=== PATIENT | male | born 1960 | race Caucasian/White ===

== ENCOUNTER 2018-07-09 11:04 | Emergency (ER) | payer OTHER ==
--- NOTE | 2018-07-09 12:15 | RAD REPORT ---
EXAM DESCRIPTION: RAD - Nasal Bones - 07/09/2018 12:07 pm CLINICAL HISTORY: Pain;Trauma COMPARISON: No comparisons FINDINGS: Lucency is seen in the nasal bone with small bony linear fragment present suspicious for n tyrone bone fracture. Moderate soft tissue swelling is present.
--- NOTE | 2018-07-09 12:18 | ER ---
Nurse's Notes [facility] Name: Junaid Keller Age: 58 yrs Sex: Male : 1960 Arrival Date: 07/09/2018 Time: 11:06 Bed 20 Private MD: Diagnosis: Fracture of nasal bones;Epistaxis Presentation: 07/09 11:00 Presenting complaint: Patient states: was pulling up a 2X4 with a steel bar, 2X4 hit pt iw in face, denies LOC, sustained bloody nose. Transition of care: patient was not received from another setting of care. Onset of symptoms was July 09, 2018. Risk Assessment: Do you want to hurt yourself or someone else? Patient reports no desire to harm self or others. Initial Sepsis Screen: Does the patient meet any 2 criteria? No. Patient's initial sepsis screen is negative. Does the patient have a suspected source of infection? No. Patient's initial sepsis screen is negative. Care prior to arrival: None. 11:00 Method Of Arrival: Ambulatory iw 11:00 Acuity: ALESIA 4 iw Triage Assessment: 11:12 General: Appears in no apparent distress. uncomfortable, Behavior is calm, cooperative, hj appropriate for age. Pain: Denies pain. EENT: Nares with bleeding noted bilaterally. Neuro: Level of Consciousness is awake, alert, obeys commands, Oriented to person, place, time, situation, Appropriate for age. Cardiovascular: Capillary refill < 3 seconds Patient's skin is warm and dry. Respiratory: Airway is patent Respiratory effort is even, unlabored, Respiratory pattern is regular, symmetrical. GI: No signs and/or symptoms were reported involving the gastrointestinal system. : No signs and/or symptoms were reported regarding the genitourinary system. Derm: No signs and/or symptoms reported regarding the dermatologic system. Musculoskeletal: No deficits noted. Historical: - Allergies: 11:32 NKA; iw - Home Meds: 11:32 None [Active]; iw - PMHx: 11:32 None; iw - PSHx: 11:32 back; iw - Immunization history:: Adult Immunizations up to date. - Social history:: Smoking status: Patient uses tobacco products, Patient/guardian denies using. - Ebola Screening: : Patient negative for fever greater than or equal to 101.5 degrees Fahrenheit, and additional compatible Ebola Virus Disease symptoms Patient denies exposure to infectious person Patient denies travel to an Ebola-affected area in the 21 days before illness onset. Screenin:12 Abuse screen: Denies threats or abuse. Denies injuries from another. Nutritional hj screening: No deficits noted. Tuberculosis screening: No symptoms or risk factors identified. Fall Risk None identified. Vital Signs: 11:10 BP 135 / 81; Pulse 72; Resp 16; Temp 98.2; Pulse Ox 100% on R/A; Weight 102.06 kg; iw Height 6 ft. 5 in. (195.58 cm); Pain 0/10; 12:40 BP 138 / 70; Pulse 72; Resp 18; Pulse Ox 100% on R/A; hj 11:10 Body Mass Index 26.68 (102.06 kg, 195.58 cm) ED Course: 11:06 Patient arrived in ED. hj 11:08 Og Andrade PA is PHCP. jr8 11:08 Anand Mejia MD is Attending Physician. jr8 11:12 Arm band placed on right wrist. hj 11:12 Patient has correct armband on for positive identification. Bed in low position. Call hj light in reach. Side rails up X 1. Adult w/ patient. 11:31 Grudeep Issa, RN is Primary Nurse. hj 11:31 Triage completed. iw 12:07 XRAY Nasal Bones In Process Unspecified. EDMS 12:17 Juany Merino MD is Referral Physician. jr8 Administered Medications: No medications were administered Outcome: 12:18 Discharge ordered by . jr8 12:55 Patient left the ED. hj Signatures: Dispatcher [employer] EDMS Rosangela Dalal, JC GREENE Og Andrade PA PA jrGurdeep Espinosa RN RN
--- NOTE | 2018-07-09 12:18 | EDPHYS ---
Physician Documentation [facility] Name: Junaid Keller Age: 58 yrs Sex: Male : 1960 Arrival Date: 07/09/2018 Time: 11:06 Bed 20 Private MD: ED Physician Anand Mejia HPI: 07/09 11:13 This 58 yrs old Male presents to ER via Unassigned with complaints of Nose jr8 Bleed/Trauma. 11:13 The patient presents with nasal trauma, from direct blow, appears swelling with jr8 epistaxis. bleeding is small amount. Onset: The symptoms/episode began/occurred acutely, today. Modifying factors: The symptoms are alleviated by pressure, the symptoms are aggravated by nothing. Associated signs and symptoms: The patient has no apparent associated signs or symptoms, Loss of consciousness: the patient experienced no loss of consciousness. Severity of symptoms: At their worst the symptoms were moderate in the emergency department the symptoms have improved mildly. It is unknown whether or not the patient has had similar symptoms in the past. The patient has not recently seen a physician. Patient was working and had 2x4 accidently hit him in the nose. Has had fractures to nose in past causing deformity. Swelling present with mild epistaxis . Historical: - Allergies: 11:32 NKA; iw - Home Meds: 11:32 None [Active]; iw - PMHx: 11:32 None; iw - PSHx: 11:32 back; iw - Immunization history:: Adult Immunizations up to date. - Social history:: Smoking status: Patient uses tobacco products, Patient/guardian denies using. - Ebola Screening: : Patient negative for fever greater than or equal to 101.5 degrees Fahrenheit, and additional compatible Ebola Virus Disease symptoms Patient denies exposure to infectious person Patient denies travel to an Ebola-affected area in the 21 days before illness onset. ROS: 11:13 Eyes: Negative for injury, pain, redness, and discharge, Neck: Negative for injury, jr8 pain, and swelling, Cardiovascular: Negative for chest pain, palpitations, and edema, Respiratory: Negative for shortness of breath, cough, wheezing, and pleuritic chest pain, Abdomen/GI: Negative for abdominal pain, nausea, vomiting, diarrhea, and constipation, Back: Negative for injury and pain, MS/Extremity: Negative for injury and deformity, Skin: Negative for injury, rash, and discoloration, Neuro: Negative for headache, weakness, numbness, tingling, and seizure. 11:13 ENT: Positive for injury or acute deformity, nose bleed. Exam: 11:13 Eyes: Pupils equal round and reactive to light, extra-ocular motions intact. Lids and jr8 lashes normal. Conjunctiva and sclera are non-icteric and not injected. Cornea within normal limits. Periorbital areas with no swelling, redness, or edema. Neck: Trachea midline, no thyromegaly or masses palpated, and no cervical lymphadenopathy. Supple, full range of motion without nuchal rigidity, or vertebral point tenderness. No Meningismus. Cardiovascular: Regular rate and rhythm with a normal S1 and S2. No gallops, murmurs, or rubs. Normal PMI, no JVD. No pulse deficits. Respiratory: Lungs have equal breath sounds bilaterally, clear to auscultation and percussion. No rales, rhonchi or wheezes noted. No increased work of breathing, no retractions or nasal flaring. Abdomen/GI: Soft, non-tender, with normal bowel sounds. No distension or tympany. No guarding or rebound. No evidence of tenderness throughout. Back: No spinal tenderness. No costovertebral tenderness. Full range of motion. Skin: Warm, dry with normal turgor. Normal color with no rashes, no lesions, and no evidence of cellulitis. MS/ Extremity: Pulses equal, no cyanosis. Neurovascular intact. Full, normal range of motion. Neuro: Awake and alert, GCS 15, oriented to person, place, time, and situation. Cranial nerves II-XII grossly intact. Motor strength 5/5 in all extremities. Sensory grossly intact. Cerebellar exam normal. Normal gait. 11:13 ENT: External ear(s): are unremarkable, Ear canal(s): are normal, clear, TM's: are normal, no evidence of bulging, no dullness, no erythema, no fluid levels, no hemotympanum, no rupture, normal bony landmarks, normal mobility, Nose: External nose: deformity is noted, swelling is noted, Nasal septum: is midline, Nasal mucosa: moist, Turbinates: are normal, bleeding, is noted from both nares, and is minimal, no septal hematoma is appreciated, clotted blood, in both nares, Mouth: Lips: moist, Oral mucosa: pink and intact, moist, Gums: pink, Tongue: is moist, Posterior pharynx: Airway: patent, Tonsils: are normal in appearance, Uvula: midline, non-edematous, no erythema, swelling, is not appreciated, erythema, is not appreciated. Vital Signs: 11:10 BP 135 / 81; Pulse 72; Resp 16; Temp 98.2; Pulse Ox 100% on R/A; Weight 102.06 kg; iw Height 6 ft. 5 in. (195.58 cm); Pain 0/10; 12:40 BP 138 / 70; Pulse 72; Resp 18; Pulse Ox 100% on R/A; hj 11:10 Body Mass Index 26.68 (102.06 kg, 195.58 cm) iw MDM: 11:09 Patient medically screened. jr8 12:17 Data reviewed: vital signs, nurses notes, radiologic studies, plain films. Data jr8 interpreted: Pulse oximetry: on room air is 100 %. Interpretation: normal. Counseling: I had a detailed discussion with the patient and/or guardian regarding: the historical points, exam findings, and any diagnostic results supporting the discharge/admit diagnosis, radiology results, the need for outpatient follow up, an ENT specialist, to return to the emergency department if symptoms worsen or persist or if there are any questions or concerns that arise at home. 07/09 11:09 Order name: XRAY Nasal Bones; Complete Time: 12:17 jr8 Administered Medications: No medications were administered Disposition: 07/10 07:05 Co-signature as Attending Physician, Anand Mejia MD. rn Disposition: 07/09/18 12:18 Discharged to Home. Impression: Fracture of nasal bones, Epistaxis. - Condition is Stable. - Discharge Instructions: Nosebleed, Adult, Nasal Fracture. - Medication Reconciliation Form, Thank You Letter, Antibiotic Education, Prescription Opioid Use form. - Follow up: Juany Merino MD; When: 5 - 6 days; Reason: Recheck today's complaints, Continuance of care, Re-evaluation by your physician. - Problem is new. - Symptoms have improved. Signatures: Dispatcher [employer] EDMS Rosangela Dalal RN RN Anand Mejia MD MD rn Roszak, Josh, PA PA jr8 Gurdeep Issa RN RN hj Corrections: (The following items were deleted from the chart) 07/09 12:55 12:18 07/09/2018 12:18 Discharged to Home. Impression: Fracture of nasal bones; hj Epistaxis. Condition is Stable. Forms are Medication Reconciliation Form, Thank You Letter, Antibiotic Education, Prescription Opioid Use. Follow up: Juany Merino; When: 5 - 6 days; Reason: Recheck today's complaints, Continuance of care, Re-evaluation by your physician. Problem is new. Symptoms have improved. jr8
== END 2018-07-09 12:55 | disposition home or self-care (01) ==
LOC: ER 11:04
DX: S02.2XXA Fracture of nasal bones, initial encounter for closed fracture (principal); W22.8XXA Striking against or struck by other objects, initial encounter; Y93.89 Activity, other specified; Y92.89 Other specified places as the place of occurrence of the external cause; Y99.8 Other external cause status; Z72.0 Tobacco use
CPT/HCPCS: 70160; 99282

== ENCOUNTER 2018-11-19 13:28 | Emergency (ER) | payer OTHER ==
--- OUTSIDE RECORDS SUMMARY | 2018-11-19 13:30 | XMS REPORT | Summary of Care ---
:1960 Author Name POP CORTEZ M.D. 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 Nasal septal deviation (470, J34.2) Status: Active Hypertrophy of both inferior nasal turbinates (478.0, J34.3) Status: Active Medications Name Dates Details No Reported Medications Refills: 0 Active Allergies and Adverse Reactions Name Dates Details No Known Drug Allergies (Allergy) Status: Active Past Medical History Name Dates Details History of arthritis (V13.4, Z87.39) Status: Resolved Procedures Procedure Dates Details History of Back Surgery Completed Immunization Name Dates Details Immunizations not documented Family History Name Dates Details Family history of Active medical problems: none Status: Active Name Dates Details Family history of Active medical problems: none Status: Active Social History Name Dates Details - Status: Name Dates Details Smoker. current status unknown Vital Signs Date Test Result Details [id number] BP Systolic 148 mm[Hg] Status: BP Diastolic 118 mm[Hg] Status: Height 77 in Status: Weight 216.4 lb Status: Body Mass Index Calculated 25.66 kg/m2 Status: Body Surface Area Calculated 2.31 m2 Status: Temperature 97.5 f Status: Heart Rate 76 /min Status: Results Date Description Value Details Results not documented Plan of Care Name Dates Details Planned Observations Planned Goals not documented Interventions Provided Labs/Procedures/ImagingTobacco Use Screening; Done: 15 Nov 2018PlanPlan for nasal septal reconstruction, cartilage graft, turbinate reduction for acquired nasal deformity, saddle nose deformity, caudal septal deviation and nasal obstruction The patient confirms that consultation was verbally initiated by the specified requesting physician. Final recommendations will be communicated back to the requesting physician through the shared medical record or written communication (sent by fax or [place] mail) Instructions Name Dates Details Instructions not documented Encounters Appointment; POP CORTEZ M.D. On: 15-Nov-2018 13:45 Encounter Diagnosis: Problem not documented
[2018-11-19] MEDS ORDERED: KETOROLAC 30 MG/ML INJ ONE (14:24)
[2018-11-19] MEDS ORDERED: MEPERIDINE HCL 50 MG/ML ONE (14:24)
[2018-11-19] MEDS ORDERED: dexAMETHasone 10 MG/ML VIAL ONE (14:24)
[2018-11-19] MEDS ORDERED: ONDANSETRON 4 MG/2 ML VIAL ONE (14:39)
--- NOTE | 2018-11-19 15:13 | EDPHYS ---
Physician Documentation [facility] Name: Junaid Keller Age: 58 yrs Sex: Male : 1960 Arrival Date: 11/19/2018 Time: 13:31 Bed 30 Private MD: ED Physician Anand Mejia HPI: 11/19 14:41 This 58 yrs old Male presents to ER via Ambulatory with complaints of Back rn Pain. 14:41 The patient presents with pain that is chronic. The symptoms are located in the low rn back. Onset: The symptoms/episode began/occurred 1 week(s) ago. The pain radiates to the left leg. Associated signs and symptoms: Pertinent positives: numbness, tingling, Pertinent negatives: abdominal pain, dysuria, fever, incontinence, urinary retention, weakness. Modifying factors: The patient symptoms are alleviated by the patient symptoms are aggravated by any movement. Severity of symptoms: At their worst the symptoms were moderate, in the emergency department the symptoms have improved. The patient has experienced similar episodes in the past. The patient has been recently seen by a physician:. Reports chronic back pain, has had multiple back surgeries, has flare ups of pain like this, usually goes away after steroid and pain shot, went to [facility] last week and didn't go away. Denies bowel/bladder problems, no trauma, no fever, no rashes. Has been told several times before that needs MRI, called his insurance who told him to come here and we could do MRI.. Historical: - Allergies: 13:47 NKA; aa5 - PMHx: 13:47 None; aa5 - PSHx: 13:47 back; aa5 - Immunization history:: Flu vaccine is not up to date. - Social history:: Smoking status: Patient uses tobacco products, smokes one pack cigarettes per day. - Ebola Screening: : No symptoms or risks identified at this time. - Family history:: not pertinent. - Hospitalizations: : No recent hospitalization is reported. ROS: 14:41 Constitutional: Negative for fever, chills, and weight loss, Eyes: Negative for injury, rn pain, redness, and discharge, Neck: Negative for injury, pain, and swelling, Cardiovascular: Negative for chest pain, palpitations, and edema, Respiratory: Negative for shortness of breath, cough, wheezing, and pleuritic chest pain, Abdomen/GI: Negative for abdominal pain, nausea, vomiting, diarrhea, and constipation, Back: + chronic back pain, negative for injury MS/Extremity: Negative for injury and deformity, Skin: Negative for injury, rash, and discoloration, Neuro: Negative for headache, weakness, numbness, tingling, and seizure. Exam: 14:41 Constitutional: This is a well developed, well nourished patient who is awake, alert, rn and in no acute distress. Ambulatory to room without difficulty or distress. Back: No spinal tenderness. No costovertebral tenderness. + left perisacral tenderness, no masses MS/ Extremity: Pulses equal, no cyanosis. Neurovascular intact. Full, normal range of motion. Equal circumference. Neuro: Awake and alert, GCS 15, oriented to person, place, time, and situation. Motor strength 5/5 in all extremities. Cerebellar exam normal. Normal gait. Vital Signs: 13:47 BP 107 / 85; Pulse 87; Resp 18 S; Temp 98.2(TE); Pulse Ox 97% on R/A; Weight 99.79 kg aa5 (R); Height 6 ft. 5 in. (195.58 cm) (R); Pain 9/10; 15:27 BP 111 / 71; Pulse 85; Resp 16; Pulse Ox 98% on R/A; rv 13:47 Body Mass Index 26.09 (99.79 kg, 195.58 cm) aa5 MDM: 13:49 Patient medically screened. rn 15:08 Differential diagnosis: chronic back pain, radiculopathy. Data reviewed: vital signs, rn nurses notes, and as a result, I will discharge patient. Counseling: I had a detailed discussion with the patient and/or guardian regarding: the historical points, exam findings, and any diagnostic results supporting the discharge/admit diagnosis, the need for outpatient follow up, to return to the emergency department if symptoms worsen or persist or if there are any questions or concerns that arise at home. Response to treatment: the patient's symptoms have mildly improved after treatment, and as a result, I will discharge patient. Special discussion: I discussed with the patient/guardian in detail that at this point there is no indication for admission to the hospital. It is understood, however, that if the symptoms persist or worsen the patient needs to return immediately for re-evaluation. 15:08 ED course: Given card for Dr. Hammond, local spine surgeon for f/u, needs outpt MRI. . rn 11/19 14:35 Order name: IV Start; Complete Time: 14:35 rv Administered Medications: 14:32 Drug: TORadol - Ketorolac 15 mg Route: IM; Site: Other; rv 14:34 Follow up: given IV as per doctor's order rv 15:26 Follow up: Response: Marked relief of symptoms; Pain is decreased rv 14:34 Drug: Decadron 10 mg {Note: given IV as per doctor's order.} Route: IM; Site: Other; rv 15:26 Follow up: Response: Marked relief of symptoms; Pain is decreased rv 14:35 Drug: Demerol 50 mg {Note: given IV as per doctor's order.} Route: IM; Site: Other; rv 14:51 Follow up: rass 0 before administration rv 15:26 Follow up: Response: Marked relief of symptoms; Pain is decreased rv 14:40 Drug: Zofran 4 mg Route: IVP; Site: right forearm; rv 15:25 Follow up: Response: Nausea is decreased rv Disposition: 11/19/18 15:12 Discharged to Home. Impression: Radiculopathy, lumbar region. - Condition is Stable. - Discharge Instructions: Lumbosacral Radiculopathy. - Prescriptions for Cyclobenzaprine 10 mg Oral Tablet - take 1 tablet by ORAL route every 8-12 hours As needed; 20 tablet. Medrol (Jese) 4 mg Oral Tablets, Dose Pack - take 1 tablet by ORAL route as directed - follow package instructions; 1 packet. - Medication Reconciliation Form, Thank You Letter, Antibiotic Education, Prescription Opioid Use form. - Follow up: Private Physician; When: As needed; Reason: Recheck today's complaints, Re-evaluation by your physician. - Problem is chronic. - Symptoms have improved. Signatures: Anand Mejia MD MD rn Calderon, Audri RN RN aa5 Marlon King RN RN rv Corrections: (The following items were deleted from the chart) 15:28 15:12 11/19/2018 15:12 Discharged to Home. Impression: Radiculopathy, lumbar region. rv Condition is Stable. Forms are Medication Reconciliation Form, Thank You Letter, Antibiotic Education, Prescription Opioid Use. Follow up: Private Physician; When: As needed; Reason: Recheck today's complaints, Re-evaluation by your physician. Problem is chronic. Symptoms have improved. rn
--- NOTE | 2018-11-19 15:13 | ER ---
Nurse's Notes [facility] Name: Junaid Keller Age: 58 yrs Sex: Male : 1960 Arrival Date: 11/19/2018 Time: 13:31 Bed 30 Private MD: Diagnosis: Radiculopathy, lumbar region Presentation: 11/19 13:44 Presenting complaint: Patient states: left hip pain radiating down left leg that began aa5 last week. Pt states "I was seen at [facility] last week but the medicine they gave me it's not helping (Robaxin PO and Prednisone PO)". Denies known injury. Transition of care: patient was not received from another setting of care. Onset of symptoms was November 2018. Risk Assessment: Do you want to hurt yourself or someone else? Patient reports no desire to harm self or others. Initial Sepsis Screen: Does the patient meet any 2 criteria? No. Patient's initial sepsis screen is negative. Does the patient have a suspected source of infection? No. Patient's initial sepsis screen is negative. Care prior to arrival: None. 13:44 Acuity: ALESIA 3 aa5 13:44 Method Of Arrival: Ambulatory aa5 Historical: - Allergies: 13:47 NKA; aa5 - PMHx: 13:47 None; aa5 - PSHx: 13:47 back; aa5 - Immunization history:: Flu vaccine is not up to date. - Social history:: Smoking status: Patient uses tobacco products, smokes one pack cigarettes per day. - Ebola Screening: : No symptoms or risks identified at this time. - Family history:: not pertinent. - Hospitalizations: : No recent hospitalization is reported. Screenin:11 Abuse screen: Denies threats or abuse. Denies injuries from another. Nutritional rv screening: No deficits noted. Tuberculosis screening: No symptoms or risk factors identified. Fall Risk None identified. Assessment: 14:09 General: Appears in no apparent distress. uncomfortable, Behavior is calm, cooperative. rv Pain: Complains of pain in left hip Pain radiates to left leg and down to the toes. Neuro: Level of Consciousness is awake, alert, obeys commands, Oriented to person, place, time, situation. Cardiovascular: Patient's skin is warm and dry. Respiratory: Airway is patent. GI: No signs and/or symptoms were reported involving the gastrointestinal system. : No signs and/or symptoms were reported regarding the genitourinary system. EENT: No signs and/or symptoms were reported regarding the EENT system. Derm: Skin is intact. Musculoskeletal: Reports pain in left hip. Vital Signs: 13:47 BP 107 / 85; Pulse 87; Resp 18 S; Temp 98.2(TE); Pulse Ox 97% on R/A; Weight 99.79 kg aa5 (R); Height 6 ft. 5 in. (195.58 cm) (R); Pain 9/10; 15:27 BP 111 / 71; Pulse 85; Resp 16; Pulse Ox 98% on R/A; rv 13:47 Body Mass Index 26.09 (99.79 kg, 195.58 cm) aa5 ED Course: 13:31 Patient arrived in ED. mr 13:44 Arm band placed on. aa5 13:45 Triage completed. aa5 13:49 Anand Mejia MD is Attending Physician. rn 13:58 Marlon King RN is Primary Nurse. rv 14:11 Patient has correct armband on for positive identification. Bed in low position. Call rv light in reach. Side rails up X 1. Adult w/ patient. Pulse ox on. NIBP on. 14:35 Inserted saline lock: 22 gauge in right forearm, using aseptic technique. rv 15:28 No provider procedures requiring assistance completed. IV discontinued, intact, rv bleeding controlled, No redness/swelling at site. Pressure dressing applied. Administered Medications: 14:32 Drug: TORadol - Ketorolac 15 mg Route: IM; Site: Other; rv 14:34 Follow up: given IV as per doctor's order rv 15:26 Follow up: Response: Marked relief of symptoms; Pain is decreased rv 14:34 Drug: Decadron 10 mg {Note: given IV as per doctor's order.} Route: IM; Site: Other; rv 15:26 Follow up: Response: Marked relief of symptoms; Pain is decreased rv 14:35 Drug: Demerol 50 mg {Note: given IV as per doctor's order.} Route: IM; Site: Other; rv 14:51 Follow up: rass 0 before administration rv 15:26 Follow up: Response: Marked relief of symptoms; Pain is decreased rv 14:40 Drug: Zofran 4 mg Route: IVP; Site: right forearm; rv 15:25 Follow up: Response: Nausea is decreased rv Intake: Outcome: 15:12 Discharge ordered by . rn 15:28 Discharged to home ambulatory, with family. rv 15:28 Condition: good 15:28 Discharge instructions given to patient, Instructed on discharge instructions, follow up and referral plans. medication usage, Demonstrated understanding of instructions, follow-up care, medications, Prescriptions given X 2. 15:28 Patient left the ED. rv Signatures: Nikia Jose Roman, MD MD rn Lavelle, Vale RN RN aa5 Marlon King RN RN rv
== END 2018-11-19 15:28 | disposition home or self-care (01) ==
LOC: ER 13:28
DX: M54.16 Radiculopathy, lumbar region (principal)
CPT/HCPCS: 96372; 96374; 99284; J1100; J2175; J2405